=== PATIENT | female | born 1945 | race Caucasian/White ===

== ENCOUNTER 2018-06-24 23:23 | Emergency (ER) | payer MEDICARE, BC ==
--- NOTE | 2018-06-25 02:17 | ED ---
Lower Extremity - HPI Summary HPI Summary: Pt is a 73 y/o female who presents to the ED c/o RLE pain. She had a right knee replacement in [place] on 06/23/18. Pt was discharged the next day and began having right knee pain later that day. She also c/o erythema and swelling to the area, and now has chills. Pt denies any fever. She has been taking Oxycodone , elevating, and icing the area. Pain is rated a 10/10 in severity and is made worse with ambulating. PMSHx osteoarthritis, bilateral knee replacements. She denies any hx of blood clots. - History of Current Complaint Chief Complaint: EDExtremityLower Stated Complaint: KNEE PAIN AFTER SURGERY 06/23 PER PT Time Seen by Provider: 06/25/18 01:53 Hx Obtained From: Patient Mechanism Of Injury: Other - No injury Onset of Pain: Hours - yesterday Onset/Duration: Still Present Severity Currently: Severe Pain Intensity: 10 Pain Scale Used: 0-10 Numeric Timing: Constant Location: Is Discrete @ - right knee Associated Signs And Symptoms: Positive: Swelling, Redness, Knee Pain Aggravating Factor(s): Ambulation Able to Bear Weight: No - Allergies/Home Medications Allergies/Adverse Reactions: Allergies Allergy/AdvReac Type Severity Reaction Status Date / Time No Known Allergies Allergy Verified 06/24/18 23:36 PMH/Surg Hx/FS Hx/Imm Hx Endocrine/Hematology History: Denies: Hx Blood Disorders - blood clots Cardiovascular History: Reports: Hx Hypercholesterolemia, Hx Hypertension GI History: Reports: Hx Gastroesophageal Reflux Disease Musculoskeletal History: Reports: Hx Arthritis - osteoarthritis - Cancer History Hx Chemotherapy: No Hx Radiation Therapy: No - Surgical History Surgery Procedure, Year, and Place: bilateral knee replacements Infectious Disease History: No Infectious Disease History: Denies: Traveled Outside the [place] in Last 30 Days - Family History Known Family History: Positive: Other - [place] - Social History Alcohol Use: None Hx Substance Use: No Substance Use Type: Reports: None Hx Tobacco Use: No Smoking Status (MU): Never Smoked Tobacco Review of Systems Positive: Chills. Negative: Fever Positive: Arthralgia - right knee, Edema - right knee Positive: Other - redness right knee All Other Systems Reviewed And Are Negative: Yes Physical Exam - Summary Physical Exam Summary: VITAL SIGNS: Reviewed. GENERAL: Patient is a well-developed and nourished FEMALE who is lying comfortable in the stretcher. Patient is not in any acute respiratory distress. HEAD AND FACE: No signs of trauma. No ecchymosis, hematomas or skull depressions. No sinus tenderness. EYES: PERRLA, EOMI x 2, No injected conjunctiva, no nystagmus. EARS: Hearing grossly intact. Ear canals and tympanic membranes are within normal limits. MOUTH: Oropharynx within normal limits. NECK: Supple, trachea is midline, no adenopathy, no JVD, no carotid bruit, no c- spine tenderness, neck with full ROM. CHEST: Symmetric, no tenderness at palpation LUNGS: Clear to auscultation bilaterally. No wheezing or crackles. CVS: Regular rate and rhythm, S1 and S2 present, no murmurs or gallops appreciated. ABDOMEN: Soft, non-tender. No signs of distention. No rebound no guarding, and no masses palpated. Bowel sounds are normal. EXTREMITIES: No cyanosis or clubbing. Right knee swollen, tender, and warm. Right leg swollen. Decreased ROM due to pain. NEURO: Alert and oriented x 3. No acute neurological deficits. Speech is normal and follows commands. SKIN: Dry and warm Triage Information Reviewed: Yes Vital Signs On Initial Exam: Initial Vitals Temp Pulse Resp BP Pulse Ox 98.2 F 66 16 146/73 97 06/24/18 23:30 06/24/18 23:30 06/24/18 23:30 06/24/18 23:30 06/24/18 23:30 Vital Signs Reviewed: Yes Procedures - Procedure Summary Procedure Summary: Right Knee Arthrocentesis: Received verbal consent from patient. 5 cc of 2% Lidocaine with Epinephrine. Used aseptic technique. Entered medially with 18 gauge 1.5 inch needle. Extracted 66 cc of clear fluid that became bloody afterwards. Fluid sent to lab for cell count and culture. Diagnostics - Vital Signs Vital Signs Temp Pulse Resp BP Pulse Ox 06/24/18 23:30 98.2 F 66 16 146/73 97 - Laboratory Result Diagrams: 06/25/18 03:57 06/25/18 03:47 Lab Statement: Any lab studies that have been ordered have been reviewed, and results considered in the medical decision making process. - Radiology Knee XR Radiology Interpretation Completed By: ED Physician Summary of Radiographic Findings: No fracture. Pending official radiology report. Lower Extremity Course/Dx - Course Course Of Treatment: Pt is a 73 y/o female who presents to the ED c/o RLE pain s /p right knee replacement 2 days ago. A physical exam revealed right knee swollen, tender, and warm, right leg swollen, decreased ROM due to pain. Knee XR revealed no fracture. Performed right knee arthrocentesis: Received verbal consent from patient. 5 cc of 2% Lidocaine with Epinephrine. Used aseptic technique. Entered medially with 18 gauge 1.5 inch needle. Extracted 66 cc of clear fluid that became bloody afterwards. Fluid sent to lab for cell count and culture. Bloodwork without abnormalities. Pt is leaving AMA with a final dx of post-operative right knee pain. She is leaving AMA because she does not want to wait for the results of the culture. Informed patient of the risks, including knee infection, sepsis, and leg amputation. - Diagnoses Provider Diagnoses: Postoperative pain of right knee Discharge - Sign-Out/Discharge Documenting (check all that apply): Patient Departure - AMA Patient Received Moderate/Deep Sedation with Procedure: No - Discharge Plan Condition: Stable Disposition: AGAINST MEDICAL ADVICE Patient Education Materials: Knee Pain (ED), Against Medical Advice (ED) Referrals: Corie Hwang MD [Primary Care Provider] - (1-2 days) Additional Instructions: You are leaving against medical advice. Risks include knee infections, sepsis, and leg amputation. PLEASE RETURN TO THE ED IMMEDIATELY FOR WORSENING OR CONCERNING SYMPTOMS. - Billing Disposition and Condition Condition: STABLE Disposition: Against Medical Advice - Attestation Statements Document Initiated by Scribe: Yes Documenting Scribe: Quita Salgado Provider For Whom Angelibe is Documenting (Include Credential): Hernandez Hannah MD Scribe Attestation: Quita Dinh, scribed for Hernandez Hannah MD on 06/25/18 at 0622. Scribe Documentation Reviewed: Yes Provider Attestation: The documentation as recorded by the Quita garsia accurately reflects the service I personally performed and the decisions made by me, Hernandez Hannah MD Status of Scribe Document: Viewed
[2018-06-25] MEDS ORDERED: PROCHLORPERAZINE INJ 5 MG/ML 2 ML VIAL IM ONE (02:37)
[2018-06-25] MEDS ORDERED: HYDROmorphone INJ1* 1 MG/ML SYRINGE IM ONE (02:38)
[2018-06-25] MEDS ORDERED: Lidocaine 2% EPI 1:200000 MPF*10-20 ML VIAL ONE (03:38)
[2018-06-25 04:07] LABS: ABS Basophils 0 10^3/ul (0-0.2); ABS Eosinophils 0 10^3/ul (0-0.6); ABS Lymphocytes 0.9 10^3/ul (1.0-4.8); ABS Monocytes 0.8 10^3/ul (0-0.8); ABS Neutrophils 6.2 10^3/ul (1.5-7.7); ABS Nucleated RBC 0 10^3/ul; Eosinophil % 0.4 %; Hematocrit 38 % (33-41); Hemoglobin 12.7 g/dL (12.0-16.0); Lymphocyte % 11.7 %; Mean Corpuscular HGB Conc 33 g/dL (31-36); Mean Corpuscular Hemoglobin 30 pg (27-31); Mean Corpuscular Volume 89 fL (80-97); Mean Platelet Volume 8.6 fL (7.4-10.4); Nucleated Red Blood Cells % 0; Platelet Count 194 10^3/uL (150-450); Red Blood Count 4.25 10^6 /uL (3.70-4.87); Red Cell Distribution Width 14 % (10.5-15)
[2018-06-25 04:24] LABS: Albumin 3.8 g/dL (3.2-5.2); Albumin/Globulin Ratio 1.2 (1-3); C Reactive Protein 162.42 mg/L (<8.01); EGFR African American 93.3 (>60); EGFR Non-African American 77.1 (>60); Globulin 3.3 g/dL (2-4); Potassium 4.2 mmol/L (3.5-5.0); Total Bilirubin 0.4 mg/dL (0.2-1.0); Total Protein 7.1 g/dL (6.4-8.9)
[2018-06-25 04:52] LABS: Body Fluid Source Synovial Fluid
[2018-06-25 05:47] VITALS: BP 138/72
[2018-06-25 06:28] LABS: Body Fluid Mono 7 %
== END 2018-06-25 05:00 | disposition left against medical advice (07) ==
LOC: ED 23:23
DX: G89.18 Other acute postprocedural pain (principal); M25.561 Pain in right knee; Z53.21 Procedure and treatment not carried out due to patient leaving prior to being seen by health care provider; E78.00 Pure hypercholesterolemia, unspecified; I10 Essential (primary) hypertension; K21.9 Gastro-esophageal reflux disease without esophagitis; M19.90 Unspecified osteoarthritis, unspecified site
CPT/HCPCS: 36415; 80053; 85025; 86140; 87040; 87070; 87205; 87640; 87641; 89051; 96372; 99283; J0780; J1170